=== PATIENT | male | born 1990 | race Two or more races ===

== ENCOUNTER 2021-01-05 16:13 | Emergency (ER) | payer OTHER ==
[~2021-01-05] VITALS: Ht 167.6 cm; Wt 64.4 kg
== END 2021-01-05 18:49 | disposition home or self-care (01) ==
LOC: ER 16:13
DX: M54.5 Low back pain (principal)

== ENCOUNTER 2021-09-27 07:59 | Emergency (ER) | payer OTHER ==
[~2021-09-27] VITALS: Ht 167.6 cm; Wt 56.7 kg
== END 2021-09-27 09:22 | disposition home or self-care (01) ==
LOC: ER 07:59
DX: K64.5 Perianal venous thrombosis (principal); K64.8 Other hemorrhoids; K61.2 Anorectal abscess